=== PATIENT | male | born 1960 | race Asian ===

== ENCOUNTER 2017-01-22 10:48 | Day surgery (SDC) | payer OTHER ==
[~2017-01-22 10:48] MED LIST: ceFAZolin SODIUM 1 GM VIAL IVPB ONE
[2017-01-22] MEDS ORDERED: BUPIVACAINE HCL/PF 0.5% (5MG/ML) 10 ML VIAL ONE (14:07)
[2017-01-22] MEDS ORDERED: PROPOFOL 20 ML ONE (16:02)
[2017-01-22] MEDS ORDERED: ROCURONIUM BROMIDE 50 MG/5 ML VIAL ONE (16:02)
[2017-01-22] MEDS ORDERED: MIDAZOLAM HCL 2 MG/2 ML SINGLE DOSE VIAL ONE (16:03)
--- NOTE | 2017-01-22 16:44 | HP ---
Admitting History and Physical - Admission Limitations to Obtaining History: Language Barrier (pt speaks little engligh, intrepreter used today with nursing staff Rey Parker), Other - Past Medical History MANUFACTURE SPECIALIST: No: Seizure Cardiovascular: Yes: HTN. No: Deep Vein Thrombosis Pulmonary: Yes: Asthma. No: Sleep Apnea Gastrointestinal: No: Gastritis Renal/: Yes: Renal Failure Heme/Onc: No: Bleeding Disorder Endocrine: Yes: Diabetes Mellitus - Past Surgical History Past Surgical History: Yes: Cholecystectomy - Smoking History Smoking history: Never smoked - Alcohol/Substance Use Hx Alcohol Use: No Home Medications - Allergies Allergies/Adverse Reactions: Allergies Allergy/AdvReac Type Severity Reaction Status Date / Time No Known Allergies Allergy Verified 01/22/17 12:42 - Home Medications Home Medications: Ambulatory Orders Sodium Bicarbonate - 650 mg PO DAILY #0 tablet 03/15/15 Amlodipine Besylate [Norvasc -] 5 mg PO HS 08/08/16 Atorvastatin Ca [Lipitor] 10 mg PO HS 08/08/16 Furosemide [Lasix -] 40 mg PO BID 08/08/16 Insulin Glargine,Hum.rec.anlog [Lantus (nf)] 18 units SQ BID 08/08/16 Metoprolol Succinate [Toprol Xl -] 50 mg PO DAILY 08/08/16 Acetaminophen W/ Codeine #3 [Tylenol # 3 -] 1 - 2 tab PO Q6H PRN #20 tablet MDD 8 01/22/17 Review of Systems - Review of Systems Constitutional: denies: Chills, Fever Cardiovascular: denies: Chest Pain, Palpitations, Shortness of Breath Respiratory: denies: Cough, Snoring Gastrointestinal: denies: Abdominal Pain, Nausea Integumentary: denies: Bruising Neurological: denies: Headache, Seizure Hematology/Lymphatic: denies: Easily Bruised, Excessive Bleeding Physical Examination Vital Signs: Vital Signs Temperature 97.8 F 01/22/17 12:41 Pulse Rate 65 01/22/17 12:41 Respiratory Rate 20 01/22/17 12:41 Blood Pressure 131/76 01/22/17 12:41 O2 Sat by Pulse Oximetry (%) 100 01/22/17 12:33 Constitutional: Yes: Well Nourished, Calm HENT: Yes: WNL, Atraumatic, Normocephalic Neck: Yes: WNL, Supple, Trachea Midline Cardiovascular: Yes: WNL, Regular Rate and Rhythm Respiratory: Yes: WNL, Regular, CTA Bilaterally Gastrointestinal: Yes: WNL, Normal Bowel Sounds, Soft Extremities: No: Amputation, Calf Tenderness Edema: No Peripheral Pulses WNL: Yes Peripheral Pulses: Left Doralis Pedis: 2+, Right Dorsalis Pedis: 2+ Neurological: Yes: WNL, Alert, Oriented ...Motor Strength: LUE, LLE, RUE, RLE Psychiatric: Yes: WNL, Alert, Oriented Labs: CBC, BMP 01/22/17 11:00 Laboratory Tests 01/22/17 01/22/17 11:00 11:22 Potassium 5.4 H POC Glucometer 169 Assessment/Plan 57 yo male with ESRD here today for placment of peritoneal dialysis catheter He remains npo Betablock taken DVT ppx with SCD, early aambulation Medical clearance in his chart
[2017-01-22] MEDS ORDERED: ceFAZolin SODIUM 1 GM VIAL IVPB ONE (16:55)
[2017-01-22] MEDS ORDERED: DEXAMETHASONE SOD PHOSPHATE 4 MG/1 ML VIAL ONE (17:01)
[2017-01-22] MEDS ORDERED: NEOSTIGMINE METHYLSULFATE 0.5 MG/ML - 10 ML MDV ONE (17:28)
[2017-01-22] MEDS ORDERED: GLYCOPYRROLATE 0.2 MG/1 ML VIAL ONE (17:50)
[2017-01-22] MEDS ORDERED: ACETAMINOPHEN 325 MG TABLET (FP) PO PRN (18:22)
[2017-01-22] MEDS ORDERED: oxyCODONE HCL 5 MG TABLET PO PRN (18:22)
[2017-01-22] MEDS ORDERED: ONDANSETRON 4 MG/2 ML VIAL IVPUSH PRN (18:26)
--- NOTE | 2017-01-22 18:26 | OP ---
Operative Note - Note: Operative Date: 01/22/17 Pre-Operative Diagnosis: Renal failure. Umbilical hernia Operation: Laparoscopic repair umbilical hernia. Placement peritoneal dialysis catheter Implants: Small Ventralex ST mesh. [place] neck curled Tenchkoff catheter Post-Operative Diagnosis: Same as Pre-op Surgeon: Almas Cortez Database Development Project Manager: Cheri Calhoun Anesthesiologist/HEAT PLANT SPECIALIST: Dany Carter Anesthesia: General
[2017-01-22] MEDS ORDERED: SODIUM CHLORIDE 1,000 ML IV SCH (18:30)
[2017-01-22 19:05] VITALS: TEMP 97.8
[2017-01-22 19:37] VITALS: BP 132/70; PULSE 60
--- NOTE | 2017-01-23 07:34 | OP ---
DATE OF OPERATION: 01/22/2017 SURGEON: Almas Cortez MD DEHYDRATOR TENDER: POP Saha PROCEDURE: Laparoscopic repair of umbilical hernia and laparoscopic placement of peritoneal dialysis catheter. PREOPERATIVE DIAGNOSIS: End-stage renal disease with umbilical hernia. POSTOPERATIVE DIAGNOSIS: End-stage renal disease with umbilical hernia. ANESTHESIA: General. ANESTHESIOLOGIST: Dany Carter MD OPERATIVE FINDINGS: There was a small umbilical hernia containing preperitoneal fat. There was also a single adhesion of omentum to the hernia site. OPERATIVE PROCEDURE: Following routine patient identification, with side and site verification, general anesthesia was induced. The abdomen was prepped with ChloraPrep. A time-out was performed. Marcaine was infiltrated in the skin and a small incision made in the midline superior to the umbilicus. A 5-mm optical trocar was placed under direct visualization. Pneumopreperitoneum was established with carbon dioxide to 15 mmHg pressure. A second 5-mm port was placed in the left abdominal wall and a third in the right abdominal wall. Adhesion of omentum to the umbilicus was divided with the Harmonic scalpel. The contents of the hernia were reduced bluntly, using the Harmonic scalpel to free the fatty tissue around the fascial defect. The defect was assessed. Then an incision was made on the right side of the umbilicus. An 8-mm bladeless trocar was advanced through the incision into the peritoneal cavity through the fascial defect. A small Ventralex ST mesh was folded and passed through the port. Then the port was removed. The mesh was unfolded inside the belly and pulled tight against the abdominal wall. It was fixed in place with Protac. The excess mesh was trimmed. Then the wound was closed with interrupted suture of 3-0 Vicryl in the subcutaneous tissue and subcuticular suture of 4-0 Biosyn on the skin. Another incision was then made to the right of the umbilicus, away from the repair. The 8-mm trocar was then passed through the fascia under the peritoneum and directed inferiorly towards the pelvis. A swan-neck, curled, Tenckhoff catheter was then straightened with a wire and advanced through the port. It was then deployed into the pelvis. The inner cuff was left just under the peritoneum, at the fascial defect. The port was removed. The other end of the catheter was attached to a curved tunneler, which was passed in the subcutaneous plan to exit the right lower quadrant abdominal wall. Care was taken not to twist the catheter. The Luer-Jose Armando adaptor was placed on the end of the catheter, and then 1 liter of saline was run into the peritoneal cavity after removing the gas. It took approximately 3 minutes for the fluid to run in, and then it drained well. The tubing was capped, leaving 300 mL of fluid in the peritoneal cavity. All ports were removed. The incisions were closed with interrupted suture of 3-0 Vicryl in the subcutaneous tissues and a running subcuticular suture of 4-0 Biosyn on the skin. All wounds were dressed with Dermabond glue. The catheter was dressed with a Biopatch and a Bioclusive dressing, and then an ABD pad over the tubing, which was secured to the abdominal wall with tape. The patient was then extubated and taken to the recovery room in stable condition. Parul [id number]
--- NOTE | 2017-01-23 16:01 | SURG ---
Surgery Foam Rubber Fabricator Note Foam Rubber Fabricator: Cheri Calhoun PA-C Date of Service: 01/22/17 Diagnosis: Renal failure. Umbilical hernia Procedure: Laparoscopic repair umbilical hernia. Placement peritoneal dialysis catheter I was present for the entirety of the operative procedure. For further detail, please refer to operative report. Visit type - Case Type Case Type: Scheduled Admission - Emergency Emergency Visit: No - New patient This patient is new to me today: Yes Date on this admission: 01/23/17 - Critical Care Critical Care patient: No
== END 2017-01-22 19:42 | disposition home or self-care (01) ==
LOC: JASU-SURG 10:48
PROVIDERS: ATTEND Surgery
PROC: 0WHG43Z Insertion of Infusion Device into Peritoneal Cavity, Percutaneous Endoscopic Approach (ICD-10-PCS; principal; 2017-01-22 13:15)
PROC: 0WUF4JZ Supplement Abdominal Wall with Synthetic Substitute, Percutaneous Endoscopic Approach (ICD-10-PCS; 2017-01-22 13:15)
DX: N18.6 End stage renal disease (principal); K42.9 Umbilical hernia without obstruction or gangrene; Z99.2 Dependence on renal dialysis
CPT/HCPCS: 36415; 84132; 94760

== ENCOUNTER 2017-06-22 11:59 | Observation (INO) | payer OTHER ==
--- NOTE | 2017-06-22 12:25 | PDOC ---
History of Present Illness - General Chief Complaint: Weakness Stated Complaint: WEAKNESS Time Seen by Provider: 06/22/17 12:18 History Source: Family - History of Present Illness Initial Comments: 06/22/17 13:21 57M with pmh of diabetes and ESRD on peritoneal dialysis daily present to the ED by EMS after family found him weakness and diaphoretic with AMS. Patient had eaten breakfast this AM before going back to bed. EMS took fingerstick glucose which was 73. Found Possibly prolonged QTC at 501. EMS vitals: 116/64 76. Patient is lethargic but arousable. No complains. Urinates daily, started dialysis with Dr. Oneil for the past 2 months. 06/22/17 14:29 06/22/17 15:44 Past History - Past Medical History Allergies/Adverse Reactions: Allergies Allergy/AdvReac Type Severity Reaction Status Date / Time No Known Allergies Allergy Verified 06/22/17 12:58 Home Medications: Ambulatory Orders Amlodipine Besylate [Norvasc -] 5 mg PO HS 08/08/16 Atorvastatin Ca [Lipitor] 10 mg PO HS 08/08/16 Insulin Glargine,Hum.rec.anlog [Lantus (nf)] 18 units SQ BID 08/08/16 Metoprolol Succinate [Toprol Xl -] 50 mg PO DAILY 08/08/16 Clarithromycin 500 mg PO DAILY 06/22/17 Anemia: Yes Asthma: Yes Cancer: No Cardiac Disorders: No CVA: No COPD: No CHF: No Dementia: No Diabetes: Yes GI Disorders: No Disorders: No HTN: Yes Hypercholesterolemia: Yes Liver Disease: No Seizures: No Thyroid Disease: No - Surgical History Abdominal Surgery: Yes Cholecystectomy: Yes - Suicide/Smoking/Psychosocial Hx Smoking History: Never smoked Hx Alcohol Use: No Drug/Substance Use Hx: No Substance Use Type: None Hx Substance Use Treatment: No Review of Systems - Review of Systems Able to Perform ROS?: No (patient lethargic falls r) Is the patient limited Icelandic proficient: Yes *Physical Exam - Physical Exam General Appearance: Yes: Moderate Distress, Thin HEENT: positive: EOMI, RASHAUN Respiratory/Chest: positive: Lungs Clear, Normal Breath Sounds. negative: Chest Tender Cardiovascular: positive: Regular Rhythm, S1, S2, Tachycardia Gastrointestinal/Abdominal: positive: Normal Bowel Sounds, Flat. negative: Tender Musculoskeletal: positive: Normal Inspection Neurologic: positive: Other (lethargic but arousable) ED Treatment Course - LABORATORY CBC & Chemistry Diagram: 06/22/17 13:20 06/22/17 13:20 Medical Decision Making - Medical Decision Making 06/22/17 14:30 57M with pmh of diabetes and ESRD on peritoneal dialysis daily present to the ED by EMS after family found him weakness and diaphoretic with AMS. Found to have glucose of 42, given D10 saline as well as orange juice. This is a hypoglycemic episode. Normalized glucose to 200. Patient ok to be discharged. Feels much better back to normal mental status as per family. 06/22/17 15:44 06/22/17 15:46 Patient persistently hypothermic at 93.[address] Oneil who asked the patient to be put on Vancomycin and admitted. *DC/Admit/Observation/Transfer Diagnosis at time of Disposition: Sepsis - Discharge Dispostion Admit: Yes - Referrals Referrals: Aura Oneil MD [Primary Care Provider] -
[2017-06-22] MEDS ORDERED: DEXTROSE 10%-WATER 500 ML INFUS.BAG IV ONE (13:02)
[2017-06-22 13:29] LABS: EOSINOPHIL 6.1 % (0-4.5); MCH 28.6 pg (25.7-33.7); MCHC 33.3 g/dl (32.0-35.9); MEAN CELL VOLUME 85.9 fl (80-96); MEAN PLT VOLUME 7.4 fl (7.5-11.1); PLATELET COUNT 296 K/MM3 (134-434); RDW 16.1 % (11.9-15.9); WHITE BLOOD COUNT 9.1 K/mm3 (4.0-10.0)
[2017-06-22 14:01] LABS: ALBUMIN 3.2 g/dl (3.4-5.0); ANION GAP 11 (8-16); BILIRUBIN,TOTAL 0.4 mg/dL (0.2-1.0); CALCIUM 8.1 mg/dL (8.5-10.1); CO2 26 mmol/L (21-32); SGPT/ALT 21 U/L (12-78); TOT PROT 7.1 g/dl (6.4-8.2)
--- NOTE | 2017-06-22 14:02 | PDOC ---
Attending Attestation - HPI HPI: 06/22/17 14:02 The patient is a 57 year old male, with a significant past medical history of ESRD (on Peritoneal dialysis daily, last HD yesterday night), Type II DM who presents to the emergency department with generalized weakness this morning. Patients son at bedside states, the patient woke up in his usual state of health this morning, ate breakfast and took his insulin Lantus pen. Subsequently , the patient went to sleep and since then has been generally weak and diaphoretic. Upon arrival patients BG is 73 and vital signs significant for 95.9 temperature. Patient denies chest pain, headache or dizziness. He denies fever, chills, abdominal pain, nausea, vomit, diarrhea or constipation. He denies dysuria, frequency, urgency or hematuria. Patient denies sick contacts or recent travel. Allergies: NKA Past surgical history: Cholecystectomy Social history: None PCP: Dr. Thad Chavarria - Physicial Exam PE: Vitals: Triage Vital signs reviewed General Appearance: no acute distress, well nourished well developed, Head: Atraumatic, normocephalic Neck: Supple;No Nuchal rigidity Chest Wall: Nontender Cardiac: Regular rate and rhythm, no murmurs, no rubs, no gallops, Lungs: Clear to auscultation bilateral, good air movement bilaterally, Abdomen: Soft, nondistended, normal bowel sounds, nontender to palpation Extremities: Full range of motion to all extremities, no cyanosis, clubbing, or edema Skin: Warm and dry, no rashes or lesions, no petechiae - Medical Decision Making 06/22/17 14:03 Documentation prepared by Lucy Sexton, acting as medical office coordinator for Chris Magallanes MD <Lucy Sexton - Last Filed: 06/22/17 14:21> - Resident Resident Name: Dc Kerr - ED Attending Attestation I have performed the following: I have examined & evaluated the patient, The case was reviewed & discussed with the resident, I agree w/resident's findings & plan, Exceptions are as noted - Medical Decision Making 06/22/17 14:17 Patient presents to ED with several day history of cough not eating as much as usual took his Lantus this morning without checking his fingerstick later became tired went back to bed was found lethargic by family upon arrival to the emergency department fingerstick 44 and she is sandwich given. Patient now with a normal serum glucose awake alert oriented final laboratory analysis pending 06/22/17 18:09 Patient presents with hypoglycemia also noted to be hypothermic. Hypoglycemia has resolved however patient has remained hypothermic. Given that the patient performs peritoneal dialysis daily he has at higher risk for iatrogenic infection We'll obtain cultures Dorie reesegger to raise patient's temperature vancomycin until cultures return negative and admitted to hospital for further management. <Chris Magallanes - Last Filed: 06/22/17 18:10>
[2017-06-22 14:06] LABS: ALK PHOS 63 U/L (45-117)
[2017-06-22 14:11] LABS: CREATININE 8.9 mg/dL (0.7-1.3); GLUCOSE,RANDOM 41 mg/dL (74-106); SGOT/AST 34 U/L (15-37)
[2017-06-22] MEDS ORDERED: VANCOMYCIN 1 GRAM (PRE-DOCKED) 1,000 MG/250 ML BAG IVPB ONE (15:46)
[2017-06-22] MEDS ORDERED: VANCOMYCIN 1 GRAM (PRE-DOCKED) 250 ML IVPB ONE (16:06)
[2017-06-23] MEDS ORDERED: amLODIPine BESYLATE 10 MG TABLET (FP) PO SCH (10:00)
--- NOTE | 2017-06-23 11:03 | HP ---
DATE OF ADMISSION: HISTORY: This is a 57-year-old male known to have end-stage renal disease on peritoneal dialysis. Yesterday morning, the family brought him when he became unresponsive. In the ER, his blood sugar was 44. After giving him IV D50, he woke up. No history of hypoglycemia in the past. He is known to have noninsulin-dependent diabetes, but he is not on any medication now. He had upper respiratory infection a week ago. Seen by me and was put on Biaxin. His other medications are Toprol XL 50 mg once a day, amlodipine 10 mg once a day, and atorvastatin 10 mg once a day. He lives with his family. PHYSICAL EXAMINATION: General: He does not have any complaints. Awake, alert, and oriented not in distress. Vital Signs: BP 130/90, pulse 78, respirations 20, temperature 98. HEENT: Unremarkable. Neck: Supple. No JVD. Lungs: Clear. Heart: S1, S2 normal. No S3 or S4. Abdomen: Soft. Extremities: Legs, no edema. Neurologic: Grossly normal. LABORATORY: WBC 9, hemoglobin 12.9, hematocrit 38. Chemistry: Sodium 139, potassium 3.8, chloride 102, BUN 49, creatinine 8.9. Blood sugar was less than 50. This morning it is 81. Chest x-ray negative. IMPRESSION: 1. Hypoglycemia. 2. Hypothermia. 3. End-stage renal disease. 4. Sepsis, unknown etiology. PLAN: Continue IV antibiotics. Patient will have ID consult and Nephrology consult. We will follow. Parul [id number]
[2017-06-23 12:07] VITALS: BMI 25.1
--- NOTE | 2017-06-23 12:07 | CON.NEP ---
Consult Consult Specialty:: Nephrology Referred by:: Dr. Oneil Reason for Consultation:: ESRD on PD - History of Present Illness Chief Complaint: Hypoglycemia History of Present Illness: This is a 57 year old gentleman with PMhx of ESRD (on Peritoneal dialysis daily , last HD yesterday night), Type II DM on Insulin who presented to the ED with hypoglycemia and found to be hypothemic. - History Source History Provided By: Patient Limitations to Obtaining History: No Limitations - Past Medical History Cardio/Vascular: Yes: HTN. No: Deep Vein Thrombosis Pulmonary: Yes: Asthma. No: Sleep Apnea Renal/: Yes: Renal Failure Endocrine: Yes: Diabetes Mellitus - Past Surgical History Past Surgical History: Yes: Cholecystectomy - Alcohol/Substance Use Hx Alcohol Use: No - Smoking History Smoking history: Never smoked Home Medications - Allergies Allergies/Adverse Reactions: Allergies Allergy/AdvReac Type Severity Reaction Status Date / Time No Known Allergies Allergy Verified 06/22/17 12:58 - Home Medications Home Medications: Ambulatory Orders Amlodipine Besylate [Norvasc -] 5 mg PO HS 08/08/16 Atorvastatin Ca [Lipitor] 10 mg PO HS 08/08/16 Insulin Glargine,Hum.rec.anlog [Lantus (nf)] 18 units SQ BID 08/08/16 Metoprolol Succinate [Toprol XL -] 50 mg PO DAILY 08/08/16 Family Disease History - Family Disease History Family History: Unremarkable Review of Systems - Review of Systems Constitutional: reports: Unintentional Wgt. Loss. denies: Chills, Fever, Lethargy, Loss of Appetite Neck: reports: No Symptoms Cardiovascular: reports: No Symptoms. denies: Chest Pain, Edema, Palpitations Respiratory: reports: No Symptoms Gastrointestinal: reports: No Symptoms. denies: Constipation Genitourinary: reports: No Symptoms Musculoskeletal: reports: No Symptoms Integumentary: reports: No Symptoms Neurological: reports: No Symptoms Nephrology Consult - Height Height: 5 ft 8 in - Weight Weight: 165 lb 7 oz - BMI Body Mass Index (BMI): 25.1 - Lab Results Anion Gap: Anion Gap Anion Gap 11 (8-16) 06/22/17 13:20 - Imaging Chest X-ray: Report Reviewed - Physical Examination Vital Signs: Vital Signs Temperature 97.8 F 06/23/17 05:26 Pulse Rate 85 06/23/17 05:26 Respiratory Rate 20 06/23/17 05:26 Blood Pressure 134/85 06/23/17 05:26 O2 Sat by Pulse Oximetry (%) 97 06/22/17 20:10 Constitutional: Yes: Well Nourished, No Distress, Calm Eyes: Yes: Conjunctiva Clear HENT: Yes: Atraumatic Neck: Yes: Supple Cardiovascular: Yes: Regular Rate and Rhythm, S1, S2. No: JVD Respiratory: Yes: Regular, CTA Bilaterally Gastrointestinal: Yes: Normal Bowel Sounds, Soft. No: Ascites, Distention, Tenderness, Vomiting Renal/: No: Anuria, CVA Tenderness - Left, CVA Tenderness - Right Edema: No Neurological: Yes: Alert, Oriented Problem List - Problems (1) Hypothermia Code(s): T68.XXXA - HYPOTHERMIA, INITIAL ENCOUNTER (2) Hypoglycemia Code(s): E16.2 - HYPOGLYCEMIA, UNSPECIFIED (3) ESRD on peritoneal dialysis Code(s): N18.6 - END STAGE RENAL DISEASE Z99.2 - DEPENDENCE ON RENAL DIALYSIS Assessment/Plan 57 year old gentleman with PMhx of ESRD (on Peritoneal dialysis daily, last HD yesterday night), Type II DM on Insulin who presented to the ED with hypoglycemia and found to be hypothemic. #ESRD on PD with Hypothermia and Hypoglycemia pt is clinically improved today plan for dc to PD clinic to have PD fluid studies and cultures obtained given that pt does not have any abd tenderness it is less likely that the patient has a active peritonitis s/p IV Vanco loading dose, if any further abx are needed for confirmed peritonitis based on fluid cultures can be given with PD #Hypoglycemia would given lower dose lantus as an outpatient for now monitor sugars BID to TID at home. case discussed with Dr. Mcdowell (primary x ray developer), Dr. Oneil and ID and are in agreement. Thank you Sarthak Ellis DO
--- NOTE | 2017-06-23 12:11 | CON.ID ---
Consult Consult Specialty:: infectious diseases Referred by:: Reason for Consultation:: hypothermia,r/o peritoneal dialysis catheter infection - History of Present Illness Chief Complaint: hypothermia,weakness History of Present Illness: 57 year old male, with a significant past medical history of ESRD (on Peritoneal dialysis daily, t), Type II DM admitted with generalized weakness the patient woke up in his usual state of health this morning, ate breakfast and took his insulin Lantus pen. Subsequently, the patient went to sleep and since then has been generally weak and diaphoretic. Upon arrival patients BG is 73 and vital signs significant for 95.9 temperature. Patient denies chest pain, headache or dizziness. He denies fever, chills, abdominal pain, nausea, vomit, diarrhea or constipation. He denies dysuria, frequency, urgency or hematuria. Patient denies sick contacts or recent travel. currently daughter with him mentions that he is feeling very well and currently has no complaints - History Source History Provided By: Patient, Family Member Limitations to Obtaining History: No Limitations - Past Medical History Cardio/Vascular: Yes: HTN. No: Deep Vein Thrombosis Pulmonary: Yes: Asthma. No: Sleep Apnea Renal/: Yes: Renal Failure Endocrine: Yes: Diabetes Mellitus - Past Surgical History Past Surgical History: Yes: Cholecystectomy - Alcohol/Substance Use Hx Alcohol Use: No - Smoking History Smoking history: Never smoked Home Medications - Allergies Allergies/Adverse Reactions: Allergies Allergy/AdvReac Type Severity Reaction Status Date / Time No Known Allergies Allergy Verified 06/22/17 12:58 - Home Medications Home Medications: Ambulatory Orders Amlodipine Besylate [Norvasc -] 5 mg PO HS 08/08/16 Atorvastatin Ca [Lipitor] 10 mg PO HS 08/08/16 Insulin Glargine,Hum.rec.anlog [Lantus (nf)] 18 units SQ BID 08/08/16 Metoprolol Succinate [Toprol Xl -] 50 mg PO DAILY 08/08/16 Clarithromycin 500 mg PO DAILY 06/22/17 Review of Systems - Review of Systems Constitutional: reports: Lethargy, Weakness Eyes: reports: No Symptoms HENT: reports: No Symptoms Neck: reports: No Symptoms Cardiovascular: reports: No Symptoms Respiratory: reports: No Symptoms Gastrointestinal: reports: No Symptoms Genitourinary: reports: No Symptoms Musculoskeletal: reports: Muscle Weakness Integumentary: reports: No Symptoms Neurological: reports: Weakness Endocrine: reports: No Symptoms Hematology/Lymphatic: reports: No Symptoms Psychiatric: reports: No Symptoms Physical Exam Vital Signs: Vital Signs Temperature 97.8 F 06/23/17 05:26 Pulse Rate 85 06/23/17 05:26 Respiratory Rate 20 06/23/17 05:26 Blood Pressure 134/85 06/23/17 05:26 O2 Sat by Pulse Oximetry (%) 97 06/22/17 20:10 Constitutional: Yes: Well Nourished, No Distress, Calm Eyes: Yes: Conjunctiva Clear HENT: Yes: Atraumatic Neck: Yes: Supple, Trachea Midline Cardiovascular: Yes: Regular Rate and Rhythm Respiratory: Yes: Regular, CTA Bilaterally Gastrointestinal: Yes: Normal Bowel Sounds, Soft, Other (pd catheter in place, site looks good) Musculoskeletal: Yes: WNL Extremities: Yes: WNL Imaging - Results Chest X-ray: Report Reviewed, Image Reviewed Assessment/Plan patient with episode of hypoglycemia and with hypothermia now feeling well on peritoneal dialysis hypothermia hypoglycemia esrd dm plan patient will need cultures to be send for the catheter no abx at this time will wait for cx reports patient can be dialysed
[2017-06-23] MEDS ORDERED: INSULIN REGULAR HUMAN 100 UNITS/ML *VIAL SQ ONE (12:44)
[2017-06-23 13:42] VITALS: BP 132/76; PULSE 92; TEMP 97.9
--- NOTE | 2017-06-23 14:47 | EKG ---
Test Reason : Blood Pressure : / mmHG Vent. Rate : 079 BPM Atrial Rate : 079 BPM P-R Int : 150 ms QRS Dur : 086 ms QT Int : 436 ms P-R-T Axes : 056 024 080 degrees QTc Int : 499 ms NORMAL SINUS RHYTHM PROLONGED QT ABNORMAL ECG WHEN COMPARED WITH ECG OF 15-JAN-2017 09:12, NO SIGNIFICANT CHANGE WAS FOUND Confirmed by HENRIETTA FRAZIER MD ([id number]) on 06/23/2017 2:46:38 PM Referred By: Confirmed By:HENRIETTA FRAZIER MD
[2017-06-23] MEDS ORDERED: ATORVASTATIN CA 10 MG TABLET (FP) PO SCH (22:00)
== END 2017-06-23 15:35 | disposition home or self-care (01) ==
LOC: JER 11:59 → UNDOADMOB 15:48 → JERBED 15:48 → INTOOBSV 15:48 → JERBED 18:00 → J8W 20:27 → JERBED 20:27 → J8W 20:27
PROVIDERS: ADMIT Internal Medicine; ATTEND Internal Medicine
PROC: 3E03329 Introduction of Other Anti-infective into Peripheral Vein, Percutaneous Approach (ICD-10-PCS; principal; 2017-06-22)
PROC: 3E013VG Introduction of Insulin into Subcutaneous Tissue, Percutaneous Approach (ICD-10-PCS; 2017-06-22)
PROC: 3E033GC Introduction of Other Therapeutic Substance into Peripheral Vein, Percutaneous Approach (ICD-10-PCS; 2017-06-22)
DX: I12.0 Hypertensive chronic kidney disease with stage 5 chronic kidney disease or end stage renal disease (principal); E11.649 Type 2 diabetes mellitus with hypoglycemia without coma; N18.6 End stage renal disease; Z99.2 Dependence on renal dialysis; Z79.4 Long term (current) use of insulin; D64.9 Anemia, unspecified; J45.909 Unspecified asthma, uncomplicated; E78.00 Pure hypercholesterolemia, unspecified
CPT/HCPCS: 36415; 71010-TC; 80053; 85025; 87040; 93005; 93010; 96372; 96374; 96375; 99285-25; G0378

== ENCOUNTER 2019-06-17 16:00 | Inpatient (IN) | payer OTHER ==
--- NOTE | 2019-06-17 16:19 | PDOC ---
Rapid Medical Evaluation Time Seen by Provider: 06/17/19 16:11 Medical Evaluation: Allergies Allergy/AdvReac Type Severity Reaction Status Date / Time No Known Allergies Allergy Verified 06/22/17 12:58 06/17/19 16:16 CC: abdominal pain. PMHx ESRD on PD PE: diffuse abdominal tenderness with distention Orders: labs, urine Patient will proceed to ED for further evaluation. Discharge Disposition - Diagnosis Abdominal pain - Referrals - Patient Instructions - Post Discharge Activity
--- NOTE | 2019-06-17 16:57 | PDOC ---
History of Present Illness - General Chief Complaint: Pain Stated Complaint: ABDOMINAL PAIN/SENT BY PCP Time Seen by Provider: 06/17/19 16:11 History Source: Patient, Family Exam Limitations: No Limitations - History of Present Illness Initial Comments: 06/17/19 16:52 59y M with PMH of ESRD on PD daily, IDDM, HTN, Asthma, Cholecystectomy presenting to ED for abdominal pain. Patient states he has had diffuse abdominal pain x3d which comes and goes. He does not recall any triggering or alleviating factors. He has not had a bowel movement in 3 days. Patient states that he had a fever yesterday or 2 days ago and chills today. He went to his PMD office today and was sent here for evaluation of possible peritonitis. Patient states he vomited (nbnb) 2 days ago and has not vomited since but feels nauseous. Denies chest pain, sob, back pain, headache, recent illnesses. He is unable to produce urine unless he takes a water pill. PMD: Thad Renal: Daniel PMH: see hpi PSH: see hpi Meds: see med rec Allergies: nkda Past History - Past Medical History Allergies/Adverse Reactions: Allergies Allergy/AdvReac Type Severity Reaction Status Date / Time No Known Allergies Allergy Verified 06/17/19 16:17 Home Medications: Ambulatory Orders Atorvastatin Ca [Lipitor] 10 mg PO HS 08/08/16 Metoprolol Succinate [Toprol XL -] 50 mg PO DAILY 08/08/16 Albuterol Sulfate Inhaler - [Ventolin Hfa Inhaler -] 1 puff IH DAILY 06/17/19 Budesonide/Formeterol Fumarate [SYMBICORT 80/4.5mcg -] 1 inh PO DAILY 06/17/19 Glipizide 5 mg PO DAILY 06/17/19 Insulin Detemir [Levemir Flextouch] 60 unit SQ BID 06/17/19 Levothyroxine [Synthroid -] 50 mcg PO DAILY 06/17/19 Montelukast Sodium [Singulair] 10 mg PO DAILY 06/17/19 Pantoprazole Sodium 40 mg PO DAILY 06/17/19 Torsemide 100 mg PO BID 06/17/19 Anemia: Yes Asthma: Yes COPD: No Diabetes: Yes HTN: Yes Hypercholesterolemia: Yes - Surgical History Abdominal Surgery: Yes Cholecystectomy: Yes - Immunization History Immunization Up to Date: Yes - Psycho Social/Smoking Cessation Hx Smoking History: Never smoked Hx Alcohol Use: No Drug/Substance Use Hx: No Substance Use Type: None Hx Substance Use Treatment: No Review of Systems - Review of Systems Constitutional: Yes: Chills, Fever HEENTM: No: Symptoms Reported Respiratory: No: Symptoms reported Cardiac (ROS): No: Symptoms Reported ABD/GI: Yes: See HPI : No: Symptoms Reported Musculoskeletal: No: Symptoms Reported Integumentary: No: Symptoms Reported *Physical Exam - Vital Signs Last Vital Signs Temp Pulse Resp BP Pulse Ox 100.7 F H 109 H 18 137/75 99 06/17/19 16:17 06/17/19 16:17 06/17/19 16:17 06/17/19 16:17 06/17/19 16:17 - Physical Exam General Appearance: Yes: Nourished, Appropriately Dressed, Mild Distress HEENT: positive: EOMI, RASHAUN, Normal ENT Inspection. negative: Scleral Icterus ( R), Scleral Icterus (L) Neck: positive: Trachea midline, Supple. negative: Lymphadenopathy (R), Lymphadenopathy (L) Respiratory/Chest: positive: Lungs Clear, Normal Breath Sounds. negative: Crackles, Rales, Rhonchi, Stridor, Wheezing Cardiovascular: positive: Regular Rhythm, Regular Rate, S1, S2. negative: Edema , JVD, Murmur Vascular Pulses: Dorsalis-Pedis (R): 2+, Doralis-Pedis (L): 2+ Gastrointestinal/Abdominal: positive: Normal Bowel Sounds, Soft, Distended, Rebound, Tenderness (diffuse), Other (PD catheter in place, no surrounding erythema). negative: Guarding Musculoskeletal: negative: CVA Tenderness Extremity: positive: Normal Capillary Refill. negative: Pedal Edema, Swelling Integumentary: positive: Normal Color, Dry, Warm Neurologic: positive: cupola charger insulation II-XII NML intact, Fully Oriented, Alert, Normal Mood/ Affect, Normal Response, Motor Strength 5/5 ED Treatment Course - LABORATORY CBC & Chemistry Diagram: 06/17/19 16:50 06/17/19 16:50 Medical Decision Making - Medical Decision Making 06/17/19 21:41 59y F with PMH of ESRD on PD, DM, HTN presenting with abdominal pain, fevers/ chills, nausea and no bm x3d. vitals: febrile, tachycardic ddx includes but not limited to sbo, peritonitis, perforation, colitis, appendicitis, sbp, hepatitis, cholangitis sepsis w/u with lipase ordered by rme added fluids, ofirmev, vanc and renally dosed zosyn. ekg: sinus tachycardia -cxr, ct chest, ctap labs: anemia (baseline), lact 4, cr 10, no white count pt has reduced pain after ofirmev. ctap shows possible early appendicitis, recommending po contrast. discussed case with Dr. Katz, will follow patient, requesting po contrast ctap. rpt vitals: afebrile, not tachycardic. rpt lact 1.7 CTAP with po contrast negative for appendicitis; was bowel loop. will admit patient. accepted by Dr. Oneil. Discharge - Discharge Information Problems reviewed: Yes Clinical Impression/Diagnosis: Peritonitis Abdominal pain Qualifiers: Abdominal location: unspecified location Qualified Code(s): R10.9 - Unspecified abdominal pain Condition: Fair - Admission Yes - Follow up/Referral - Patient Discharge Instructions - Post Discharge Activity
[2019-06-17] MEDS ORDERED: ACETAMINOPHEN 1000 MG/100 ML VIAL (NON FORMULARY) IVPB ONE (17:17)
[2019-06-17] MEDS ORDERED: ONDANSETRON 4 MG/2 ML VIAL IVPB ONE (17:17)
[2019-06-17 17:26] LABS: VENOUS PC02 55.6 mmHg (38-52); VENOUS PH 7.32 (7.31-7.41); VENOUS PO2 < 49 mmHg (28-48)
[2019-06-17 17:35] LABS: BASO % 0.4 % (0-2.0); EOS % 1.3 % (0-4.5); HEMATOCRIT 34.1 % (35.4-49); HEMOGLOBIN 11.3 GM/dL (11.7-16.9); LYMPH % 8.9 % (8-40); MCH 30.9 pg (25.7-33.7); MCHC 33.3 g/dl (32.0-35.9); MEAN CELL VOLUME 92.8 fl (80-96); MEAN PLT VOLUME 7.9 fl (7.5-11.1); MONO % 5.2 % (3.8-10.2); NEUT % 84.2 % (42.8-82.8); PLATELET COUNT 337 K/MM3 (134-434); RBC 3.67 M/mm3 (4.00-5.60); RDW 18.5 % (11.9-15.9); WHITE BLOOD COUNT 9.8 K/mm3 (4.0-10.0)
[2019-06-17 17:44] LABS: INR 1.05 (0.83-1.09); PROTHROMBIN TIME (PATIENT) 12.4 SEC (9.7-13.0)
[2019-06-17 17:47] LABS: ACTIVATED PTT 24.4 SECONDS (25.2-36.5)
[2019-06-17] MEDS ORDERED: PIPERACILLIN/TAZOB 3.375 GM 3.375 GM in DEXTROSE 5%-WATER - 50 ML IVPB ONE (17:52)
[2019-06-17] MEDS ORDERED: SODIUM CHLORIDE 500 ML IV STA (17:52)
[2019-06-17] MEDS ORDERED: VANCOMYCIN 1 GM in D5W (PRE-DOCKED) 1,000 MG/250 ML IVPB ONE (17:52)
[2019-06-17] MEDS ORDERED: ACETAMINOPHEN INJECTION 100 ML IVPB ONE (17:56)
[2019-06-17] MEDS ORDERED: ONDANSETRON 4 MG/2 ML VIAL ONE (17:56)
[2019-06-17] MEDS ORDERED: VANCOMYCIN 1 GRAM (PRE-DOCKED) 1,000 MG/250 ML BAG IVPB ONE (17:56)
[2019-06-17] MEDS ORDERED: PIPERACILLIN/TAZOB 3.375 GM 3.375 GM/50 ML BAG IVPB ONE (17:57)
[2019-06-17 18:04] LABS: ALBUMIN 2.7 g/dl (3.4-5.0); ALK PHOS 82 U/L (45-117); ANION GAP 13 MMOL/L (8-16); BILIRUBIN,TOTAL 0.4 mg/dL (0.2-1); BLOOD UREA NITROGEN 41.5 mg/dL (7-18); CALCIUM 8.6 mg/dL (8.5-10.1); CHLORIDE 90 mmol/L (98-107); CO2 29 mmol/L (21-32); GLUCOSE,RANDOM 86 mg/dL (74-106); LIPASE 344 U/L (73-393); POTASSIUM 3.6 mmol/L (3.5-5.1); SGOT/AST 13 U/L (15-37); SGPT/ALT 16 U/L (13-61); SODIUM 132 mmol/L (136-145); TOT PROT 7.6 g/dl (6.4-8.2)
[2019-06-17] MEDS ORDERED: PIPERACILLIN/TAZOB 2.25 GM 2.25 GM in DEXTROSE 5%-WATER - 50 ML IVPB ONE (18:09)
[2019-06-17] MEDS ORDERED: SODIUM CHLORIDE 1,000 ML IV STA (19:14)
[2019-06-17] MEDS ORDERED: PIPERACILLIN/TAZOB 2.25 GM 2.25 GM/50 ML BAG IVPB ONE (19:23)
--- NOTE | 2019-06-17 19:26 | PDOC ---
Documentation entered by Arely Gonzáles SCRIBE, acting as scribe for Cynthia Dong DO. Cynthia Dong, DO: This documentation has been prepared by the Nivia marie Adrianna, SCRIBE, under my direction and personally reviewed by me in its entirety. I confirm that the documentation accurately reflects all work, treatment, procedures, and medical decision making performed by me. Attending Attestation - Resident Resident Name: Halle Nava - ED Attending Attestation I have performed the following: I have examined & evaluated the patient, The case was reviewed & discussed with the resident, I agree w/resident's findings & plan, Exceptions are as noted - HPI HPI: The patient is a 59 year old male, with a significant PMH of ESRD (on PD daily) , IDDM, HTN, HLD, anemia, and asthma, who presents to the ED for evaluation of abdominal pain for 3 days. Patient describes the pain as intermittent and diffuse, without any aggravating or alleviating factors. His LBM was 3 days ago , and he had a fever yesterday with chills today. Patient endorses an episode of NBNB vomit 2 days ago, and has felt nauseous since. Patient saw his PCP this morning for these complaints, and was advised to come to the ED for rule out peritonitis. Allergies: NKA,NKDA Surgical History: Cholecystectomy Social History: PCP: Dr. Oneil - Physicial Exam PE: Constitutional: +Hot to touch. Awake, alert, oriented. No acute distress. Head: Normocephalic. Atraumatic Eyes: PERRL. EOMI. Conjunctivae are not pale. ENT: Mucous membranes are moist and intact. Posterior pharynx without exudates or erythema. Uvula midline. Neck: Supple. Full ROM. No lymphadenopathy. Cardiovascular: +Tachycardic. Regular rhythm. S1, S2 regular. Distal pulses are 2+ and symmetric. Pulmonary/Chest: +Slightly diminished breath sounds at the bilateral bases. No evidence of respiratory distress. No wheezing, rales or rhonchi. Abdominal: +Clean PD site at the RLQ. +Diffusely tender to palpation. Soft and non-distended. No rebound, guarding or rigidity. No organomegaly. No palpable masses. Good bowel sounds. Back: No CVA tenderness. Musculoskeletal: No edema. No cyanosis. No clubbing. Full range of motion in all extremities. Nocalf tenderness. Radial/pedal pulses are intact and 2+ bilaterally Skin: Skin is warm and dry. No petechiae. No purpura. Neurological: Alert and oriented to person, place, and time. Cranial nerves II -XII are grossly intact. Normal speech. Strength is grossly symmetric. No sensory deficits. Psychiatric: Good eye contact. Normal interaction, affect and behavior. - Medical Decision Making 06/17/19 19:16 I, Dr. Cynthia Dong, DO, attest that this document has been prepared under my direction and personally reviewed by me in its entirety. I further attest, that it accurately reflects all work, treatment, procedures and medical decision -making performed by me. a/p: 59yo male with hx of PD with abd pain, n/v 2 days ago and fever -pt with cough, congestion, fevers and abd pain -no change in PD access or difficulty using PD catheter -pt states feels febrile at home but did not check the temp -pt febrile in the ED -diffuse abd ttp -pt warm to touch, will send labs, cultures, ekg, cxr -will send for abd ct 06/17/19 19:23 pt with poss acute appy 06/17/19 19:[address] Katz who is at the bedside and does ask for a repeat ct with oral contrast to eval for poss appy 06/17/19 23:12 no acute appy on repeat ct lactate improved will need admission for fever with PD hx 06/17/19 23:[address] Oneil - accepts pt to service, requests consult to dr. nunez 06/17/19 23:25 dr katz updated on ct results Discharge - Discharge Information Problems reviewed: Yes Clinical Impression/Diagnosis: Peritonitis Abdominal pain Qualifiers: Abdominal location: unspecified location Qualified Code(s): R10.9 - Unspecified abdominal pain Condition: Fair - Admission Yes - Follow up/Referral Referrals: Aura Oneil MD [Primary Care Provider] - - Patient Discharge Instructions - Post Discharge Activity Heart Score/ECG Review - ECG Intrepretation Comment:: 06/17/19 19:31 sinus tach at 115, nl axis, nl interval, baseline artifact, no acute st/t wave findings ED Treatment Course - LABORATORY CBC & Chemistry Diagram: 06/17/19 16:50 06/17/19 16:50 - ADDITIONAL ORDERS Additional order review: Laboratory Results 06/17/19 06/17/19 06/17/19 16:50 16:50 16:50 PT with INR INR PTT (Actin FS) VBG pH 7.32 POC VBG pCO2 55.6 H POC VBG pO2 < 49 H VBG HCO3 28.0 VBG O2 Sat (Candice) 61.6 L VBG Base Excess 1.6 Sodium 132 L Potassium 3.6 Chloride 90 L Carbon Dioxide 29 Anion Gap 13 BUN 41.5 H Creatinine 10.0 H* Est GFR (CKD-EPI)AfAm 5.96 Est GFR (CKD-EPI)NonAf 5.14 Random Glucose 86 Lactic Acid 4.0 H* Calcium 8.6 Total Bilirubin 0.4 AST 13 L ALT 16 Alkaline Phosphatase 82 Total Protein 7.6 Albumin 2.7 L Lipase 344 06/17/19 16:50 PT with INR 12.40 INR 1.05 PTT (Actin FS) 24.4 L VBG pH POC VBG pCO2 POC VBG pO2 VBG HCO3 VBG O2 Sat (Candice) VBG Base Excess Sodium Potassium Chloride Carbon Dioxide Anion Gap BUN Creatinine Est GFR (CKD-EPI)AfAm Est GFR (CKD-EPI)NonAf Random Glucose Lactic Acid Calcium Total Bilirubin AST ALT Alkaline Phosphatase Total Protein Albumin Lipase 06/17/19 16:50 RBC 3.67 L MCV 92.8 MCHC 33.3 RDW 18.5 H MPV 7.9 Neutrophils % 84.2 H D Lymphocytes % 8.9 D Monocytes % 5.2 Eosinophils % 1.3 Basophils % 0.4 - RADIOLOGY Radiograph Interpretation: EXAM#: TYPE/EXAM: RESULT: [id number] RAD/CHEST X-RAY PORTABLE* HISTORY PROVIDED: Rule out sepsis. IMPRESSION: No acute pathology. Reported By: Dionicio Nugent MD 06/17/19 18:22 EXAM#: TYPE/EXAM: RESULT: [id number] CT/ABDOMEN PELVIS CT W/O CONTR [id number] CT/ CHEST CT WITHOUT CONTRAST HISTORY PROVIDED: Right upper lobe opacity, diffuse abdominal pain. IMPRESSION: 1. No evidence of right upper lobe mass or acute pathology within the chest. 2. Questionable inflamed appendix right lower quadrant. This may represent a small bowel loop. Clinical correlation and follow-up study following oral contrast material recommended. 3. No additional evidence of acute pathology within the abdomen or pelvis. Please see above discussion. Reported By: Dionicio Nugent MD 06/17/19 19:05 EXAM#: TYPE/EXAM: RESULT: [id number] CT/ABDOMEN PELVIS CT W/O CONTR HISTORY PROVIDED: Follow-up IMPRESSION: No CT evidence of acute appendicitis. Please see above discussion. Reported By: Dionicio Nugent MD 06/17/19 23:10 - Medications Given in the ED: ED Medications Discontinued Medications Generic Name Dose Route Start Last Admin Trade Name Freq PRN Reason Stop Dose Admin Acetaminophen 1,000 mg 06/17/19 17:17 06/17/19 18:02 Ofirmev Injection - IVPB 06/17/19 17:18 1,000 mg ONCE ONE Administration Sodium Chloride 500 mls @ 1,000 mls/hr 06/17/19 17:52 06/17/19 18:03 Normal Saline - IV 06/17/19 18:21 1,000 mls/hr ASDIR STA Administration Ondansetron HCl 4 mg 06/17/19 17:17 06/17/19 18:03 Zofran Injection IVPB 06/17/19 17:18 4 mg ONCE ONE Administration
--- NOTE | 2019-06-17 20:54 | CONSULT ---
Consult Consult Specialty:: SURGERY Reason for Consultation:: abdominal pain - History of Present Illness Chief Complaint: abdominal pain History of Present Illness: 59y M with PMH of ESRD on PD daily, IDDM, HTN, Asthma, Cholecystectomy presenting to ED for abdominal pain. Patient states he has had diffuse abdominal pain x3d which comes and goes. He does not recall any triggering or alleviating factors. He has not had a bowel movement in 3 days. Patient states that he had a fever yesterday or 2 days ago and chills today. He went to his PMD office today and was sent here for evaluation of possible peritonitis. Patient states he vomited (nbnb) 2 days ago and has not vomited since but feels nauseous. Denies chest pain, sob, back pain, headache, recent illnesses. He is unable to produce urine unless he takes a water pill. - History Source History Provided By: Patient, Family Member - Past Medical History Cardio/Vascular: Yes: HTN. No: Deep Vein Thrombosis Pulmonary: Yes: Asthma. No: Sleep Apnea Renal/: Yes: Renal Failure Endocrine: Yes: Diabetes Mellitus - Past Surgical History Past Surgical History: Yes: Cholecystectomy - Alcohol/Substance Use Hx Alcohol Use: No - Smoking History Smoking history: Never smoked Home Medications - Allergies Allergies/Adverse Reactions: Allergies Allergy/AdvReac Type Severity Reaction Status Date / Time No Known Allergies Allergy Verified 06/17/19 16:17 - Home Medications Home Medications: Ambulatory Orders Atorvastatin Ca [Lipitor] 10 mg PO HS 08/08/16 Metoprolol Succinate [Toprol XL -] 50 mg PO DAILY 08/08/16 Albuterol Sulfate Inhaler - [Ventolin Hfa Inhaler -] 1 puff IH DAILY 06/17/19 Budesonide/Formeterol Fumarate [SYMBICORT 80/4.5mcg -] 1 inh PO DAILY 06/17/19 Glipizide 5 mg PO DAILY 06/17/19 Insulin Detemir [Levemir Flextouch] 60 unit SQ BID 06/17/19 Levothyroxine [Synthroid -] 50 mcg PO DAILY 06/17/19 Montelukast Sodium [Singulair] 10 mg PO DAILY 06/17/19 Pantoprazole Sodium 40 mg PO DAILY 06/17/19 Torsemide 100 mg PO BID 06/17/19 Physical Exam Vital Signs: Vital Signs Temperature 100.7 F H 06/17/19 16:17 Pulse Rate 109 H 06/17/19 16:17 Respiratory Rate 18 06/17/19 16:17 Blood Pressure 137/75 06/17/19 16:17 O2 Sat by Pulse Oximetry (%) 99 06/17/19 16:17 Constitutional: Yes: No Distress Eyes: Yes: Conjunctiva Clear HENT: Yes: Normocephalic Neck: Yes: Supple Cardiovascular: Yes: Regular Rate and Rhythm Respiratory: Yes: CTA Bilaterally Gastrointestinal: Yes: Soft, Tenderness (RUQ, LLQ, RLQ, and suprapubic) Labs: CBC, BMP 06/17/19 16:50 06/17/19 16:50 Imaging - Results Cat Scan: Report Reviewed, Image Reviewed Problem List - Problems (1) Abdominal pain Assessment/Plan: r/o acute appendicitis agree with repeat CTa/p with oral contrast Code(s): R10.9 - UNSPECIFIED ABDOMINAL PAIN Qualifiers: Abdominal location: unspecified location Qualified Code(s): R10.9 - Unspecified abdominal pain
[2019-06-18 11:16] VITALS: BP 113/78; PULSE 91; TEMP 98.6
[2019-06-18 11:20] LABS: BLOOD UREA NITROGEN 41.6 mg/dL (7-18); POTASSIUM 3.8 mmol/L (3.5-5.1)
[2019-06-18 11:24] LABS: CALCIUM 6.9 mg/dL (8.5-10.1); CREATININE 10.6 mg/dL (0.55-1.3)
[2019-06-18] MEDS ORDERED: cefTAZidime PENTAHYDRATE 1 GM/50ML PRE-DOCKED (RESTRICTED TO ID) IVPB ONE (12:00)
[2019-06-18 12:36] VITALS: BMI 26.0
--- NOTE | 2019-06-18 12:55 | CONSULT ---
Consult - text type - Consultation Consultation Note: Renal Consult for ESRD on PD This is a 59 year old [place] gentleman with history of ESRD on PD (x 2 years), IDDM, Hypertension, Cholectectomy who presented from PMD office with abd pain to r/o peritonitis. Pt seen and examined in the ER. Reports that abd pain is improved but not fully resolved. Was febile intially but now is afebrile. s/p IV antibiotics in the ER. S/p 2 CT Abd/Pelvis that showed no overt pathology in the Abdomen. No N/V. Able to tolerate oral intake this AM. Was seen by Dr. Mcdowell in PD clinic yesterday and PD fluid was noted to be cloudy. Cultures were drawn at the dialysis unit. PMhx: as above Allergies: NKDA Family Hx: NC Social Hx: no T/A/D ROS: as per HPI, all other pertinent ros negative Home Medications Medication Instructions Recorded Atorvastatin Ca [Lipitor] 10 mg PO HS 08/08/16 Metoprolol Succinate [Toprol XL -] 50 mg PO DAILY 08/08/16 Albuterol Sulfate Inhaler - 1 puff IH DAILY 06/17/19 [Ventolin Hfa Inhaler -] Budesonide/Formeterol Fumarate 1 inh PO DAILY 06/17/19 [SYMBICORT 80/4.5mcg -] Glipizide 5 mg PO DAILY 06/17/19 Insulin Detemir [Levemir Flextouch] 60 unit SQ BID 06/17/19 Levothyroxine [Synthroid -] 50 mcg PO DAILY 06/17/19 Montelukast Sodium [Singulair] 10 mg PO DAILY 06/17/19 Pantoprazole Sodium 40 mg PO DAILY 06/17/19 Torsemide 100 mg PO BID 06/17/19 Vital Signs Temperature 98.6 F 06/18/19 11:15 Pulse Rate 91 H 06/18/19 11:15 Respiratory Rate 16 06/18/19 11:15 Blood Pressure 113/78 06/18/19 11:15 O2 Sat by Pulse Oximetry (%) 95 06/18/19 08:00 Intake & Output 06/15/19 06/16/19 06/17/19 06/18/19 23:59 23:59 23:59 23:59 Weight 81.511 kg NAD awake and alert neck supple RRR CTA soft, + mild tenderness, no guarding no LE edema CBC, BMP 06/17/19 16:50 06/18/19 10:18 59 year old [place] gentleman with history of ESRD on PD (x 2 years), IDDM, Hypertension, Cholectectomy who presented from PMD office with abd pain to r/o peritonitis 1. ESRD on PD 2. Abd pain r/o peritonitis 3. IDDM 4. Hypertension CT of the Abd showed no structural pathology. High suspicion for peritonitis given abd pain and cloudy PD fluid in the PD unit. s/p Zosyn and Vanco in the ER. Will give Fortaz 1g IV x 1 now. ID consulted. If ok with ID would like to discharge to PD unit to have PD fluid drained and IP antibiotics instilled. Blood cultures collected, will follow up to final result. Case discussed with Dr. Oneil and family at the bedside. Sarthak Ellis DO
--- NOTE | 2019-06-18 12:55 | CON.ID ---
Consult Consult Specialty:: infectious diseases Referred by:: Sil Reason for Consultation:: abd pain,fever - History of Present Illness Chief Complaint: fever abd ,pain History of Present Illness: 59 year old [place] gentleman with history of ESRD on PD (x 2 years), IDDM , Hypertension, Cholectectomy who presented from PMD office with abd pain to r/ o peritonitis. according to the family the abd pain is going on for last 3 days and was very severe yesterday.also they mention that he has been spiking fevers In the dialysis unit dr Mcdowell noted that the patient had cloudy fluid currently the patient is stable has no abd pain,has been afebrile - History Source History Provided By: Patient, Family Member Limitations to Obtaining History: No Limitations - Past Medical History Cardio/Vascular: Yes: HTN. No: Deep Vein Thrombosis Pulmonary: Yes: Asthma. No: Sleep Apnea Renal/: Yes: Renal Failure Endocrine: Yes: Diabetes Mellitus - Past Surgical History Past Surgical History: Yes: Cholecystectomy - Alcohol/Substance Use Hx Alcohol Use: No - Smoking History Smoking history: Never smoked Home Medications - Allergies Allergies/Adverse Reactions: Allergies Allergy/AdvReac Type Severity Reaction Status Date / Time No Known Allergies Allergy Verified 06/17/19 16:17 - Home Medications Home Medications: Ambulatory Orders Atorvastatin Ca [Lipitor] 10 mg PO HS 08/08/16 Metoprolol Succinate [Toprol XL -] 50 mg PO DAILY 08/08/16 Albuterol Sulfate Inhaler - [Ventolin Hfa Inhaler -] 1 puff IH DAILY 06/17/19 Budesonide/Formeterol Fumarate [SYMBICORT 80/4.5mcg -] 1 inh PO DAILY 06/17/19 Glipizide 5 mg PO DAILY 06/17/19 Insulin Detemir [Levemir Flextouch] 60 unit SQ BID 06/17/19 Levothyroxine [Synthroid -] 50 mcg PO DAILY 06/17/19 Montelukast Sodium [Singulair] 10 mg PO DAILY 06/17/19 Pantoprazole Sodium 40 mg PO DAILY 06/17/19 Torsemide 100 mg PO BID 06/17/19 Review of Systems - Review of Systems Constitutional: reports: Fever Eyes: reports: No Symptoms HENT: reports: No Symptoms Neck: reports: No Symptoms Cardiovascular: reports: No Symptoms Respiratory: reports: No Symptoms Gastrointestinal: reports: Abdominal Pain Genitourinary: reports: No Symptoms Musculoskeletal: reports: No Symptoms Integumentary: reports: No Symptoms Neurological: reports: No Symptoms Endocrine: reports: No Symptoms Hematology/Lymphatic: reports: No Symptoms Psychiatric: reports: No Symptoms Physical Exam Vital Signs: Vital Signs Temperature 98.6 F 06/18/19 11:15 Pulse Rate 91 H 06/18/19 11:15 Respiratory Rate 16 06/18/19 11:15 Blood Pressure 113/78 06/18/19 11:15 O2 Sat by Pulse Oximetry (%) 95 06/18/19 08:00 Constitutional: Yes: Well Nourished, No Distress, Calm Cardiovascular: Yes: S1, S2 Respiratory: Yes: Regular, CTA Bilaterally Gastrointestinal: Yes: Normal Bowel Sounds, Soft, Other (pd catheter in place) Musculoskeletal: Yes: WNL Extremities: Yes: WNL Neurological: Yes: Alert, Oriented Psychiatric: Yes: Alert, Oriented Labs: CBC, BMP 06/17/19 16:50 06/18/19 10:18 Assessment/Plan 59 year old [place] gentleman with history of ESRD on PD (x 2 years), IDDM, Hypertension, Cholectectomy who presented from PMD office with abd pain to r/o peritonitis 1. ESRD on PD 2. Abd pain r/o peritonitis 3. IDDM 4. Hypertension patient evaluated and at the moment patient does not have s/of peritonitis should continue abx cx report awaited nephro going to follow the cx as out patient received vanco and zosyn and then ceftazidine abx to continue untill the peritoneal cx are reported back if the peritoneal cx or blood cx are positive then will need readmission and be treated with iv abx
[2019-06-18] MEDS ORDERED: PIPERACILLIN/TAZOB 2.25 GM 2.25 GM in DEXTROSE 5%-WATER - 50 ML IVPB SCH (13:15)
--- NOTE | 2019-06-18 13:33 | EKG ---
Test Reason : Blood Pressure : / mmHG Vent. Rate : 115 BPM Atrial Rate : 115 BPM P-R Int : 126 ms QRS Dur : 072 ms QT Int : 352 ms P-R-T Axes : 057 030 068 degrees QTc Int : 486 ms POOR DATA QUALITY, INTERPRETATION MAY BE ADVERSELY AFFECTED SINUS TACHYCARDIA WITH OCCASIONAL PREMATURE VENTRICULAR COMPLEXES WHEN COMPARED WITH ECG OF 22-JUN-2017 12:31, PREMATURE VENTRICULAR COMPLEXES ARE NOW PRESENT Confirmed by MARLYN GAN MD ([id number]) on 06/18/2019 1:32:46 PM Referred By: Confirmed By:MARLYN GAN MD
[2019-06-18] MEDS ORDERED: PT OWN MED DRAWER 7, Y5N ONE (13:44)
== END 2019-06-18 14:57 | disposition home or self-care (01) | DRG 251 ==
LOC: JER 16:00 → JERBED 23:17 → J5S 06-18 11:40
PROVIDERS: ADMIT Internal Medicine; ATTEND Internal Medicine
DX: R10.9 Unspecified abdominal pain (principal); E11.22 Type 2 diabetes mellitus with diabetic chronic kidney disease; I12.0 Hypertensive chronic kidney disease with stage 5 chronic kidney disease or end stage renal disease; N18.6 End stage renal disease; Z99.2 Dependence on renal dialysis; J45.909 Unspecified asthma, uncomplicated; E78.5 Hyperlipidemia, unspecified; D64.9 Anemia, unspecified; Z79.4 Long term (current) use of insulin
CPT/HCPCS: 36415; 71045-TC-FY; 71250-TC; 74176-TC; 80048; 80053; 82803; 83605; 83690; 84484; 85025; 85610; 85730; 87040; 87804; 93005; 93010; 99284-25; J0131; J7030

== ENCOUNTER 2021-05-28 04:51 | Day surgery (SDC) | payer OTHER ==
[2021-05-24 17:08] VITALS: BMI 28.0
[2021-05-28] MEDS ORDERED: LIDOCAINE HCL 1%, 10 MG/ML (20ML VIAL) ONE (09:12)
[2021-05-28] MEDS ORDERED: BUPIVACAINE HCL/PF 0.5% (5MG/ML) 10 ML VIAL ONE (09:12)
[2021-05-28] MEDS ORDERED: DEXTROSE 50%-WATER 25 GM/50 ML DISP.SYRIN ONE (09:35)
[2021-05-28] MEDS ORDERED: PROPOFOL 20 ML ONE ×3 (09:51→11:16)
[2021-05-28] MEDS ORDERED: MIDAZOLAM HCL 2 MG/2 ML SINGLE DOSE VIAL ONE (09:51)
[2021-05-28] MEDS ORDERED: ceFAZolin SODIUM 1 GM VIAL IVPB ONE (09:57)
[2021-05-28] MEDS ORDERED: HEPARIN NA (PORCINE) 1,000 UNITS/ML 10ML M-D VIAL SQ ONE (10:35)
[2021-05-28] MEDS ORDERED: VANCOMYCIN 1,000 MG VIAL (RESTRICTED TO ID ONLY) ONE (10:38)
[2021-05-28] MEDS ORDERED: BACITRACIN 15 GM TUBE TOPICAL OINTMENT ONE (10:48)
[2021-05-28] MEDS ORDERED: BACITRACIN 15 GM TUBE TOPICAL OINTMENT TP ONE (10:48)
[2021-05-28] MEDS ORDERED: oxyCODONE HCL 5 MG TABLET PO PRN (13:26)
[2021-05-28] MEDS ORDERED: ONDANSETRON 4 MG/2 ML VIAL IVPUSH PRN (13:26)
[2021-05-28] MEDS ORDERED: LACTATED RINGERS SOLUTION 1,000 ML IV SCH (13:30)
[2021-05-28 15:43] VITALS: BP 147/78; PULSE 85; TEMP 98.4
== END 2021-05-28 14:50 | disposition home or self-care (01) ==
LOC: JASU-SURG 04:51
PROVIDERS: ATTEND Surgery
PROC: 0WHG33Z Insertion of Infusion Device into Peritoneal Cavity, Percutaneous Approach (ICD-10-PCS; 2021-05-28)
PROC: 0WPG33Z Removal of Infusion Device from Peritoneal Cavity, Percutaneous Approach (ICD-10-PCS; principal; 2021-05-28 11:30)
DX: T85.71XA Infection and inflammatory reaction due to peritoneal dialysis catheter, initial encounter (principal); B99.9 Unspecified infectious disease; Y82.8 Other medical devices associated with adverse incidents; Y92.9 Unspecified place or not applicable; Y83.8 Other surgical procedures as the cause of abnormal reaction of the patient, or of later complication, without mention of misadventure at the time of the procedure
CPT/HCPCS: 36415; 82947; 82962; 84132; 94760; J1644

== ENCOUNTER 2021-10-24 04:34 | Day surgery (SDC) | payer OTHER ==
[2021-10-22 13:28] VITALS: BMI 24.7
[2021-10-24] MEDS ORDERED: POVIDONE-IODINE OINTMENT 10% - 28.4 GM TUBE ONE (07:06)
[2021-10-24] MEDS ORDERED: HEPARIN NA (PORCINE) 5,000 UNITS/ML 1ML VIAL ONE ×2 (07:06→07:29)
[2021-10-24] MEDS ORDERED: LIDOCAINE HCL 1%, 10 MG/ML (20ML VIAL) ONE (07:06)
[2021-10-24] MEDS ORDERED: PAPAVERINE HCL 30 MG/1 ML 10 ML VIAL NR ONE (07:12)
[2021-10-24] MEDS ORDERED: ceFAZolin SODIUM 1 GM VIAL ONE (07:43)
[2021-10-24] MEDS ORDERED: SODIUM CHLORIDE 0.9% P/F 10 ML VIAL IJ ONE (07:43)
[2021-10-24] MEDS ORDERED: LIDOCAINE HCL/PF 2% SDV 5ML VIAL ONE (07:43)
[2021-10-24] MEDS ORDERED: ROCURONIUM BROMIDE 50 MG/5 ML SYRINGE ONE (07:44)
[2021-10-24] MEDS ORDERED: MIDAZOLAM HCL 2 MG/2 ML SINGLE DOSE VIAL ONE ×2 (07:44→08:03)
[2021-10-24] MEDS ORDERED: PROPOFOL 20 ML ONE ×2 (07:44)
[2021-10-24] MEDS ORDERED: KETAMINE HCL 200 MG/20 ML VIAL ONE (07:50)
[2021-10-24] MEDS ORDERED: ceFAZolin SODIUM 1 GM VIAL IVPB ONE (08:10)
[2021-10-24] MEDS ORDERED: LIDOCAINE HCL 1%, 10 MG/ML (20ML VIAL) INF ONE ×2 (08:33)
[2021-10-24] MEDS ORDERED: POVIDONE-IODINE OINTMENT 10% - 28.4 GM TUBE TP ONE (08:39)
[2021-10-24] MEDS ORDERED: oxyCODONE HCL 5 MG TABLET PO PRN ×2 (09:01)
[2021-10-24] MEDS ORDERED: ONDANSETRON 4 MG/2 ML VIAL IVPUSH PRN (09:01)
[2021-10-24] MEDS ORDERED: ONDANSETRON 4 MG/2 ML VIAL ONE (11:17)
[2021-10-24 11:52] VITALS: TEMP 98
[2021-10-24] MEDS ORDERED: oxyCODONE HCL 5 MG TABLET ONE (12:40)
[2021-10-24 14:17] VITALS: BP 135/75; PULSE 78
== END 2021-10-24 13:44 | disposition home or self-care (01) ==
LOC: JASU-SURG 04:34
PROVIDERS: ATTEND Surgery
PROC: 03180ZD Bypass Left Brachial Artery to Upper Arm Vein, Open Approach (ICD-10-PCS; principal; 2021-10-24 08:00)
DX: I12.0 Hypertensive chronic kidney disease with stage 5 chronic kidney disease or end stage renal disease (principal); E11.22 Type 2 diabetes mellitus with diabetic chronic kidney disease; N18.6 End stage renal disease; Z99.2 Dependence on renal dialysis; Z79.4 Long term (current) use of insulin
CPT/HCPCS: 36415; 82962; 84132; 94760; J1644

== ENCOUNTER 2022-07-23 17:03 | Emergency (ER) | payer OTHER ==
[2022-07-23 17:29] VITALS: BMI 25.9
[2022-07-23] MEDS ORDERED: amLODIPine BESYLATE 5 MG TABLET (FP) PO ONE (17:30)
[2022-07-23] MEDS ORDERED: VALSARTAN 160 MG TABLET PO ONE (17:30)
[2022-07-23] MEDS ORDERED: amLODIPine BESYLATE 5 MG TABLET (FP) ONE (17:35)
[2022-07-23] MEDS ORDERED: VALSARTAN 80 MG TABLET ONE (17:35)
[2022-07-23 21:01] VITALS: PULSE 63; RESP 18; TEMP 97.4
[2022-07-27 08:05] VITALS: BP 197/90
== END 2022-07-23 21:01 | disposition home or self-care (01) ==
LOC: MERGE 17:03 → JER 17:03 → EDBD 17:03 → JER 21:01
DX: T82.838A Hemorrhage due to vascular prosthetic devices, implants and grafts, initial encounter (principal); I16.0 Hypertensive urgency; I10 Essential (primary) hypertension
CPT/HCPCS: 99283-25